=== PATIENT | male | born 1980 | race Caucasian/White ===

== ENCOUNTER 2020-09-20 15:54 | Inpatient (IN) ==
--- NOTE | 2020-09-20 16:47 | DR.GENAD ---
HPI Time Seen Time Seen by Provider: 09/20/20 16:47 PCP Primary Care Physician: JOEL HPI Comment HPI Comment: PATIENT IS 40YR OLD MALE IN ER WITH REDNESS UNDER SCOTUM AND UNDER BASE OF PENIS. ALSO SWELLING AND PAIN BOTH TESTICLES. PATIENT DENIES DM. CUR RENTLY PAIN IS SHARP, 5/10 AND RADIATES DOWN THE SCOTUM. CELLULITIS STARTED 2 WEEKS AGO AND GOT WORSE. HE WAS THEN ADMITTED AT [facility] IN [place] PAST MONDAY AND DISCHARGE HOME PAST . ON BACTRIM DS AND CLINDAMYCIN. SWELLING AND PAIN GETTING WORSE AND IS STARTED RUNNING FEVER. NO DYSURIA, NAUSEA, VOMITING OR DIARRHEA. NO DRAINAGE NOTED. IN THE HOSPITAL HE WAS TREATED WITH IV ANTIBIOTICS WELL. PATIENT HAS FAIL OUT PATIENT TREAMENT. Complaint/Symptoms Chief Complaint Doctors Comments: PAIN AND SWELLING SCOTUM AND TESTIS. Chief Complaint:: PT. STATES HE HAS AN IN GROWN HAIR TO LEFT GROIN FROM SHAVING. PT. STATES IT IS NOT GETTING BETTER. PT. STATES HE WAS HOSPITALIZED IN [place] FOR PROBLEM X 2 DAYS AND WAS RELEASED ON MONDAY. PT. IS CURRENTLY ON CLINDAMYCIN AND BACTRIM. COVID-19 Coronavirus risk:travel/contact w/high risk person: No Has patient experienced Coronavirus symptoms: No Nurses notes reviewed Nurses Notes Review: Yes Source History Provided: Patient Mode of Arrival Mode of Arrival: Ambulatory Timing Onset of Chief Complaint: 09/06/20 Came on: Suddenly Duration Duration: Constant Duration: Weeks Location Location: SCROTUM. Severity Severity: Moderate Modifying Factors Worsens:: WALKING. Improves:: RESTING. Associated Signs and Symptoms Associated Signs and Symptoms: LOWGRADE FEVER. Other History Other History: NO HISTORY OF DM. PMH PMH Past Medical History: No Past Surgical History: Yes Surgical History: Other Past Surgical History Comment: RIGHT FOOT Family History History of Family Medical Conditions: No Social History Does patient currently use any type of tobacco product: Yes Have you used tobacco products in the last 12 months: Yes Type of Tobacco Use: Cigarettes Does any household member use tobacco: No Alcohol Use: Heavy Lives With: Family Lives Where: Home Travel Risk Coronavirus risk:travel/contact w/high risk person: No Has patient experienced Coronavirus symptoms: No Infectious screening In the last 2 months have you had wt loss of >10#?: NO Have you had fever, night sweats or hemotysis?: No Have you traveled outside the country in the last 6 months?: No Isolation: Standard ROS Review of Systems Constitutional: See HPI and Fever; negative Weakness and Fatigue Eyes: No Symptoms Reported and See HPI ENTM: No Symptoms Reported and See HPI; negative Nose Discharge and Nose Congestion Respiratoy: No Symptoms Reported and See HPI; negative Moist Cough, Short of Breath and Wheezing Cardiovascular: No Symptoms Reported, See HPI and Palpitations; negative Chest Pain and Edema Gastrointestinal/Abdominal: No Symptoms Reported and See HPI; negative Abdominal Pain, Diarrhea and Vomiting Genitourinary: No Symptoms Reported and See HPI; negative Dysuria, Frequency and Hematuria Neurological: No Symptoms Reported and See HPI; negative Headache, Weakness and Dizziness Musculoskeletal: No Symptoms Reported and See HPI; negative Back Pain and Muscle Pain Integumentary: See HPI, Change in Color and Other (SCOTUM RED AND SWOLLEN, TE STES SWOLLEN.); negative Rash and Juandice Hematologic/Lymphatic: No Symptoms Reported and See HPI; negative Easy Bruising and Swollen Glands Endocrine: No Symptoms Reported and See HPI; negative Increased Thirst and Increased Urine Psychiatric: No Symptoms Reported and See HPI All Other Systems: Reviewed and Negative PE Vital Signs Vitals: Temperature 99.1 F Pulse Rate 120 Respiratory Rate 20 Blood Pressure 131/83 O2 Sat by Pulse Oximetry 97 General Limitations: No Limitations General Appearance: Alert and In No Apparent Distress Head Head Exam: Normal Inspection Eyes Eye exam: Normal Appearance and PERRL; negative Scleral Icterus and Conjunctival Injection ENT ENT Exam: Normal Exam, Normal Oropharynx, Normal External Ear Exam and TM's Normal Bilaterally External Ear Exam: Normal External Inspection; negative Mastoid Tenderness TM/Canal Exam: Bilateral: Normal Nose Exam: Normal Nose Exam Mouth Exam: Normal Inspection; negative Lip Swelling and Tongue Swelling Throat Exam: Normal Inspection; negative Tonsillar Erythema, Tonsillomegaly and Tonsillar Exudate Neck Neck Exam: Normal Inspection and Trachea Midline; negative Tenderness and Lymphadenopathy Chest Chest Inspection: Normal Inspection Respiratory Respiratory Exam: Normal Lung Sounds Bilat Respiratory Exam: Bilateral: Clear to Auscultation Cardiovascular Cardiovascular Exam: Regular Rate, Normal Rhythm and Normal Heart Sounds; negative Systolic Murmur and Diastolic Murmur Abdominal Exam Abdominal Exam: Normal Inspection, Normal Bowel Sounds and Soft; negative Tenderness Extremities Extremities Exam: Normal Inspection and Normal Capillary Refill; negative Calf T enderness Back Back Exam: Normal Inspection; negative Tenderness, (R) CVA Tenderness, (L) CVA Tenderness and Paraspinal Tenderness Neurologic Neurological Exam: Alert, Oriented X3 and CN II-XII Intact; negative Motor Sensory Deficit Psychiatric Psychiatric Exam: Normal Affect and Normal Mood Skin Skin Exam: Dry and Other (ABSCESS AND CELLULITIS SCOTUM, PAIN SCROTUM AND TESTIS.) MDM Differential Diagnosis Differential Diagnosis: CELLULITIS AND ABSCESS SCROTUM. PAIN SCROTUM AND TESTIS. COURSE Treatment Treatment: SEE ORDERS. NS 1L IV AND VANCOMUCIN 1GM IVPB IN ER. Consultation Consultation Comments: SURGICAL CONSULT, DR. THURSTON. HE IS IN ER EVALUATING PATIENT. HE WILL ADMIT PATIENT. Education/Counseling Education/Counseling: Patient Educated On: Diagnosis ROR Labs Reviewed Laboratory Results Reviewed?: Yes Result Diagrams: 09/20/20 17:27 09/20/20 17:27 Laboratory: WBC 12.1 X10^3/uL (3.6-10.0) H 09/20/20 17:27 RBC 4.58 X10^6/uL (4.7-6.0) L 09/20/20 17:27 Hgb 14.6 g/dL (13.5-18.0) 09/20/20 17:27 Hct 43.3 % (42.0-54.0) 09/20/20 17:27 MCV 94.5 fL (80.0-100.0) 09/20/20 17:27 MCH 32.0 pg (27.0-34.0) 09/20/20 17:27 MCHC 33.8 g/dL (33.0-35.0) 09/20/20 17:27 RDW 13.0 % (11.6-16.5) 09/20/20 17:27 Plt Count 331 X10^3/uL (150.0-450.0) 09/20/20 17:27 MPV 7.7 fL (7.4-11.0) 09/20/20 17:27 Neut % (Auto) 72.8 % (42.0-75.0) 09/20/20 17:27 Lymph % (Auto) 15.4 % (21.0-51.0) L 09/20/20 17:27 [place] % (Auto) 9.8 % (0.0-13.0) 09/20/20 17:27 Eos % (Auto) 1.5 % (0.9-2.9) 09/20/20 17:27 Baso % (Auto) 0.5 % (0.2-1.0) 09/20/20 17:27 Neut # (Auto) 8.8 x10^3/uL (2.2-4.8) H 09/20/20 17:27 Lymph # (Auto) 1.9 X10^3/uL (1.3-2.9) 09/20/20 17:27 [place] # (Auto) 1.2 x10^3/uL (0.3-0.8) H 09/20/20 17:27 Eos # (Auto) 0.2 x10^3/uL (0.0-0.2) 09/20/20 17:27 Baso # (Auto) 0.1 X10^3/uL (0.0-0.1) 09/20/20 17:27 Absolute Nucleated RBC 0.0 /100WBC 09/20/20 17:27 Sodium 141 mmol/L (136-145) 09/20/20 17:27 Corrected Sodium TNP 09/20/20 17:27 Potassium 4.0 mmol/L (3.5-5.1) 09/20/20 17:27 Chloride 102 mmol/L (98-107) 09/20/20 17:27 Carbon Dioxide 28.4 mmol/L (21-32) 09/20/20 17:27 BUN 19 mg/dL (7-18) H 09/20/20 17:27 Creatinine 1.01 mg/dL (0.70-1.30) 09/20/20 17:27 Est GFR (MDRD) Af Amer > 60 (>60) 09/20/20 17:27 Est GFR (MDRD) Non-Af > 60 (>60) 09/20/20 17:27 Glucose 78 mg/dL (65-99) 09/20/20 17:27 Calcium 8.6 mg/dL (8.5-10.1) 09/20/20 17:27 Corrected Calcium TNP 09/20/20 17:27 Total Bilirubin 0.20 mg/dL (0.2-1.0) 09/20/20 17:27 AST 27 Units/L (15-37) 09/20/20 17:27 ALT 30 Units/L (12-78) 09/20/20 17:27 Alkaline Phosphatase 85 Units/L (46-116) 09/20/20 17:27 Total Protein 7.4 g/dL (6.4-8.2) 09/20/20 17:27 Albumin 3.5 g/dL (3.4-5.0) 09/20/20 17:27 Globulin 3.9 g/dL (2.5-4.5) 09/20/20 17:27 Albumin/Globulin Ratio 0.9 Ratio (1.1-2.1) L 09/20/20 17:27 SARS CoV-2 RNA Rapid ИРИНА Negative (NEGATIVE) 09/20/20 20:49 XRAY XRAY Interpreted by: Radiologist (TESTICULAR US REPORT NOTED AND DISCUSSED WITH PATIENT.) and Self Opioid Opioid Risk Tool Age (Carlos box if 16-45): Yes History of Preadolescent Sexual Abuse: No Total: 1 Total Score Risk Category: Low Risk Copyright: Colton DORADO predicting aberrant behaviors Diagnosis Discharge Problem: Abscess of scrotum, Pain in both testicles
[2020-09-20 17:34] LABS: BASOPHILS # (AUTO) 0.1 X10^3/uL (0.0-0.1); BASOPHILS % (AUTO) 0.5 % (0.2-1.0); EOSINOPHILS # (AUTO) 0.2 x10^3/uL (0.0-0.2); EOSINOPHILS % (AUTO) 1.5 % (0.9-2.9); HEMATOCRIT 43.3 % (42.0-54.0); HEMOGLOBIN 14.6 g/dL (13.5-18.0); LYMPHOCYTES # (AUTO) 1.9 X10^3/uL (1.3-2.9); LYMPHOCYTES % (AUTO) 15.4 % (21.0-51.0); MEAN CORPUSCULAR HGB CONC 33.8 g/dL (33.0-35.0); MEAN CORPUSCULAR VOLUME 94.5 fL (80.0-100.0); MEAN PLATELET VOLUME 7.7 fL (7.4-11.0); MONOCYTES # (AUTO) 1.2 x10^3/uL (0.3-0.8); MONOCYTES % (AUTO) 9.8 % (0.0-13.0); NEUTROPHILS # (AUTO) 8.8 x10^3/uL (2.2-4.8); NEUTROPHILS % (AUTO) 72.8 % (42.0-75.0); PLATELET COUNT 331 X10^3/uL (150.0-450.0); RED BLOOD COUNT 4.58 X10^6/uL (4.7-6.0); WHITE BLOOD COUNT 12.1 X10^3/uL (3.6-10.0)
[2020-09-20 17:44] LABS: ALANINE AMINOTRANSFERASE 30 Units/L (12-78); ALBUMIN 3.5 g/dL (3.4-5.0); ALKALINE PHOSPHATASE 85 Units/L (46-116); ASPARTATE AMINO TRANSFERASE 27 Units/L (15-37); BLOOD UREA NITROGEN 19 mg/dL (7-18); CALCIUM 8.6 mg/dL (8.5-10.1); CARBON DIOXIDE 28.4 mmol/L (21-32); CHLORIDE 102 mmol/L (98-107); CREATININE 1.01 mg/dL (0.70-1.30); SODIUM 141 mmol/L (136-145); TOTAL PROTEIN 7.4 g/dL (6.4-8.2); eGFR NON BLACK RACES > 60 (>60)
--- NOTE | 2020-09-20 19:25 | US ---
EXAM: TESTICULAR ULTRASOUNDHISTORY: Testicular pain.TECHNIQUE: Kamara scale imaging, duplex Doppler and color flow Doppler imaging are performed with a high frequency linear transducer.COMPARISON: None available.FINDINGS:Both testicles are normal in size and echogenicity. The right testicle measures approximately 3.8 cm x 2 cm x 3 cm, and the left testicle measures approximately 4 cm x 2.7 cm x 3 cm. Normal symmetrical color flow Doppler signal is seen within the testicles. There is no evidence for testicular torsion or orchitis. There is no testicular mass seen.There is no evidence for epididymitis. The right epididymal head measures approximately 11.4 mm, and the left epididymal head measures approximately 1.0 mm, which are within normal limits. No epididymal cyst or spermatocele is seen.There is no evidence for gross hydrocele, varicocele, or herniated bowel loops seen bilaterally. There is an approximately 3.5 cm CC by 1.5 cm AP area of heterogeneous subcutaneous parenchymal hypoechogenicity with hyperemic colorful Doppler signal within the surrounding soft tissues; DDx includes infectious process with phlegmon or developing abscess in the appropriate clinical setting. Clinical correlation is advised.IMPRESSION:1. No evidence for testicular mass, testicular torsion, or orchitis.2. No evidence for epididymitis.3. No hydrocele, varicocele, or herniated bowel loops seen.4. Approximately 3.5 cm CC by 1.5 cm AP area of heterogeneous subcutaneous parenchymal hypoechogenicity with hyperemic colorful Doppler signal within the surrounding soft tissues; DDx includes infectious process with phlegmon or developing abscess in the appropriate clinical setting. Clinical correlation is advised.Electronically signed by: Dominique Fajardo (Sep 20, 2020 19:23:28)
[2020-09-20] MEDS ORDERED: VANCOMYCIN IV *PREMIX 1 G/200 ML BAG 1 G/200 ML PIGGYBACK IV ONE ×2 (20:19→20:23)
[2020-09-20] MEDS ORDERED: NS 1000 ML 1,000 ML ONE (20:19)
[2020-09-20] MEDS: NS 1000 ML 1,000 ML IV SCH (20:25)
[2020-09-20] MEDS ORDERED: ZOFRAN TAB 4 MG PO PRN (21:46)
[2020-09-20] MEDS ORDERED: VANCOMYCIN IV *PREMIX 1 G/200 ML BAG 1 G/200 ML PIGGYBACK IV SCH (21:46)
--- NOTE | 2020-09-20 22:49 | DR.H&P ---
H&P History & Physical for Day of: H&P Date: 09/20/20 Chief Complaint Chief Complaint: Swelling of left scrotum with evidence cellulitis . Allergies Allergies Allergy/AdvReac Type Severity Reaction Status Date / Time aspirin Allergy Verified 09/20/20 16:05 Penicillins Allergy Verified 09/20/20 16:05 History of Present Illness History of Present Illness: 40 yo male with progressive swelling of left scrotum with fluctuance . Getting worse . 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.) Social History Does patient currently use any type of tobacco product: Yes Have you used tobacco products in the last 12 months: Yes Type of Tobacco Use: Cigarettes Does any household member use tobacco: No Alcohol Use: Heavy Medications Home Medications: aspirin Allergy (Verified 09/20/20 16:05) Penicillins Allergy (Verified 09/20/20 16:05) CONTINUE taking the following medications clindamycin HCl 300 mg PO Q8H 09/20/20 [History] mupirocin 1 applic TOPICAL BID 09/20/20 [History] sulfamethoxazole-trimethoprim 1 tab PO BID 09/20/20 [History] Labs Result Diagrams: 09/20/20 17:27 09/20/20 17:27 Labs: Laboratory WBC 12.1 X10^3/uL (3.6-10.0) H 09/20/20 17:27 RBC 4.58 X10^6/uL (4.7-6.0) L 09/20/20 17:27 Hgb 14.6 g/dL (13.5-18.0) 09/20/20 17:27 Hct 43.3 % (42.0-54.0) 09/20/20 17:27 MCV 94.5 fL (80.0-100.0) 09/20/20 17:27 MCH 32.0 pg (27.0-34.0) 09/20/20 17:27 MCHC 33.8 g/dL (33.0-35.0) 09/20/20 17:27 RDW 13.0 % (11.6-16.5) 09/20/20 17:27 Plt Count 331 X10^3/uL (150.0-450.0) 09/20/20 17:27 MPV 7.7 fL (7.4-11.0) 09/20/20 17:27 Neut % (Auto) 72.8 % (42.0-75.0) 09/20/20 17:27 Lymph % (Auto) 15.4 % (21.0-51.0) L 09/20/20 17:27 [place] % (Auto) 9.8 % (0.0-13.0) 09/20/20 17:27 Eos % (Auto) 1.5 % (0.9-2.9) 09/20/20 17:27 Baso % (Auto) 0.5 % (0.2-1.0) 09/20/20 17:27 Neut # (Auto) 8.8 x10^3/uL (2.2-4.8) H 09/20/20 17:27 Lymph # (Auto) 1.9 X10^3/uL (1.3-2.9) 09/20/20 17:27 [place] # (Auto) 1.2 x10^3/uL (0.3-0.8) H 09/20/20 17:27 Eos # (Auto) 0.2 x10^3/uL (0.0-0.2) 09/20/20 17:27 Baso # (Auto) 0.1 X10^3/uL (0.0-0.1) 09/20/20 17:27 Absolute Nucleated RBC 0.0 /100WBC 09/20/20 17:27 Sodium 141 mmol/L (136-145) 09/20/20 17:27 Corrected Sodium TNP 09/20/20 17:27 Potassium 4.0 mmol/L (3.5-5.1) 09/20/20 17:27 Chloride 102 mmol/L (98-107) 09/20/20 17:27 Carbon Dioxide 28.4 mmol/L (21-32) 09/20/20 17:27 BUN 19 mg/dL (7-18) H 09/20/20 17:27 Creatinine 1.01 mg/dL (0.70-1.30) 09/20/20 17:27 Est GFR (MDRD) Af Amer > 60 (>60) 09/20/20 17:27 Est GFR (MDRD) Non-Af > 60 (>60) 09/20/20 17:27 Glucose 78 mg/dL (65-99) 09/20/20 17:27 Calcium 8.6 mg/dL (8.5-10.1) 09/20/20 17:27 Corrected Calcium TNP 09/20/20 17:27 Total Bilirubin 0.20 mg/dL (0.2-1.0) 09/20/20 17:27 AST 27 Units/L (15-37) 09/20/20 17:27 ALT 30 Units/L (12-78) 09/20/20 17:27 Alkaline Phosphatase 85 Units/L (46-116) 09/20/20 17:27 Total Protein 7.4 g/dL (6.4-8.2) 09/20/20 17:27 Albumin 3.5 g/dL (3.4-5.0) 09/20/20 17:27 Globulin 3.9 g/dL (2.5-4.5) 09/20/20 17:27 Albumin/Globulin Ratio 0.9 Ratio (1.1-2.1) L 09/20/20 17:27 SARS CoV-2 RNA Rapid ИРИНА Negative (NEGATIVE) 09/20/20 20:49 Review of Systems Genitourinary: Other (fluctuant mass left scrotum with surrounding cellulitis.) Physical Exam Vital Signs: Temperature 98.3 F Pulse Rate [Brachial] 108 Pulse Rate 120 Respiratory Rate 18 Blood Pressure [Left Arm] 145/99 Blood Pressure 131/83 O2 Sat by Pulse Oximetry 96 Oriented: Normal, Time, Person and Place Eyes: Normal Ear: Normal Nose: Normal Throat: Normal Respiratory: Clear Throughout Cardiovascular: Normal : Testicular Pain ( fluctuant mass left scrotum with surrounding cellulitis ) Auscultation: Bowel Sounds: Normal Palpation: Normal Skin: Normal Musculoskeletal: Normal Psychiatric: Normal Mood Description: Calm Assessment/Plan (1) Abscess of scrotum: Status: Acute Plan: IV antibiotics and plan for incision and drainage of abscess left scrotum tomorrow. Risks and benefits discussed with the patient. Review Patient was examined?: Yes
[2020-09-20] MEDS: PERCOCET TAB 5/325 MG PO PRN (23:10)
[2020-09-20 23:28] LABS: BILIRUBIN,URINE NEGATIVE (NEGATIVE); BLOOD/HEMOGLOBIN,URINE 1+ (NEGATIVE); GLUCOSE, URINE NEGATIVE (NEGATIVE); KETONES,URINE NEGATIVE (NEGATIVE); LEUKOCYTE ESTERASE ,URINE NEGATIVE (NEGATIVE); NITRITES,URINE NEGATIVE (NEGATIVE); PROTEIN,URINE NEGATIVE (NEGATIVE); UROBILINOGEN,URINE NORMAL (NORMAL)
[2020-09-20 23:32] VITALS: BMI 19.5
[2020-09-20 23:37] LABS: APPEARANCE,URINE CLEAR (CLEAR); BACTERIA,URINE NEGATIVE /HPF (NEGATIVE); COLOR,URINE YELLOW (YELLOW); RBC,URINE NONE SEEN /HPF (0-3); SQUAMOUS EPITHELIAL CELL,UR RARE /HPF (NEGATIVE)
[2020-09-21] MEDS: NS 1000 ML 1,000 ML IV SCH ×3 (05:09→21:40)
[2020-09-21 05:15] LABS: BASOPHILS # (AUTO) 0.1 X10^3/uL (0.0-0.1); BASOPHILS % (AUTO) 0.7 % (0.2-1.0); EOSINOPHILS # (AUTO) 0.3 x10^3/uL (0.0-0.2); EOSINOPHILS % (AUTO) 2.5 % (0.9-2.9); HEMATOCRIT 40.3 % (42.0-54.0); HEMOGLOBIN 13.7 g/dL (13.5-18.0); LYMPHOCYTES # (AUTO) 1.7 X10^3/uL (1.3-2.9); LYMPHOCYTES % (AUTO) 17.1 % (21.0-51.0); MEAN CORPUSCULAR VOLUME 94.2 fL (80.0-100.0); MEAN PLATELET VOLUME 8.5 fL (7.4-11.0); MONOCYTES # (AUTO) 1.3 x10^3/uL (0.3-0.8); MONOCYTES % (AUTO) 12.8 % (0.0-13.0); NEUTROPHILS # (AUTO) 6.8 x10^3/uL (2.2-4.8); NEUTROPHILS % (AUTO) 66.9 % (42.0-75.0); PLATELET COUNT 303 X10^3/uL (150.0-450.0); RED BLOOD COUNT 4.28 X10^6/uL (4.7-6.0); RED CELL DISTRIBUTION WIDTH 12.9 % (11.6-16.5); WHITE BLOOD COUNT 10.1 X10^3/uL (3.6-10.0)
[2020-09-21 05:24] LABS: ALANINE AMINOTRANSFERASE 25 Units/L (12-78); ALBUMIN 2.9 g/dL (3.4-5.0); ALKALINE PHOSPHATASE 78 Units/L (46-116); ASPARTATE AMINO TRANSFERASE 22 Units/L (15-37); BLOOD UREA NITROGEN 14 mg/dL (7-18); CALCIUM 8.2 mg/dL (8.5-10.1); CARBON DIOXIDE 30.1 mmol/L (21-32); CHLORIDE 106 mmol/L (98-107); COR CA(FOR HYPOALB) 9.1 mg/dL (8.5-10.1); CREATININE 0.89 mg/dL (0.70-1.30); SODIUM 141 mmol/L (136-145); TOTAL PROTEIN 6.4 g/dL (6.4-8.2); eGFR NON BLACK RACES > 60 (>60)
[2020-09-21] MEDS: VANCOMYCIN HCL 750 MG in D5W 250 ML IV 250 ML IV SCH ×2 (08:45→20:45)
--- NOTE | 2020-09-21 11:01 | RAD ---
HISTORYPRE-OP SCROTUMSTUDYCHEST, 1 VIEWCOMPARISONNoneFINDINGSThe trachea is midline. The cardiac silhouette is unremarkable . The lungs are clear without focal infiltrate or effusion. The bony thorax is unremarkable.IMPRESSIONNo acute cardiopulmonary disease.Electronically signed by: IAN KHAN (Sep 21, 2020 10:58:39)
[2020-09-21] MEDS ORDERED: LR 1000 ML IV 1,000 ML IV ONE (12:51)
[2020-09-21] MEDS ORDERED: CLEOCIN 600 MG IV PREMIX 0 MG/0 ML BAG IV ONE (12:51)
[2020-09-21] MEDS ORDERED: BETADINE SOLN ONE (12:52)
[2020-09-21] MEDS ORDERED: FENTANYL INJ 100 mcg ONE (13:18)
[2020-09-21] MEDS ORDERED: KETALAR ONE (13:36)
[2020-09-21] MEDS ORDERED: XYLOCAINE 2 % (PLAIN) ONE (13:36)
[2020-09-21] MEDS ORDERED: VERSED ONE (13:36)
[2020-09-21] MEDS ORDERED: DIPRIVAN VIAL ONE (13:36)
[2020-09-21] MEDS ORDERED: MARCAINE 0.5% ONE (13:41)
[2020-09-21] MEDS: PERCOCET TAB 5/325 MG PO PRN ×3 (15:32→21:26)
--- NOTE | 2020-09-21 15:48 | OR.IMMED ---
IMMEDIATE POST-OP NOTE Immediate Post-Op Note Pre-Op Diagnosis: left scrotal abscess Post-Op Diagnosis: same Procedure: incise and drain left srotal abscess Description of Procedure: see operative report Surgeon/Senior Stock Plan Administrator: Denise Findings: As above Specimens Removed: cultures of abscess Estimated Blood Loss: minimal Drains: NONE Complications: none Progress Notes: Dressing with scrotal support applied. Continue IV Vancomycin and await culture results Discharge Progress Notes: as above Condition: Stable Post Hospital Plans and Medications: as above Final Diagnosis: left scrotal abscess.
[2020-09-22 05:18] LABS: BASOPHILS # (AUTO) 0.1 X10^3/uL (0.0-0.1); BASOPHILS % (AUTO) 0.5 % (0.2-1.0); EOSINOPHILS # (AUTO) 0.3 x10^3/uL (0.0-0.2); EOSINOPHILS % (AUTO) 2.8 % (0.9-2.9); HEMATOCRIT 39.7 % (42.0-54.0); HEMOGLOBIN 13.3 g/dL (13.5-18.0); LYMPHOCYTES # (AUTO) 1.5 X10^3/uL (1.3-2.9); LYMPHOCYTES % (AUTO) 14.4 % (21.0-51.0); MEAN CORPUSCULAR HEMOGLOBIN 32.1 pg (27.0-34.0); MEAN CORPUSCULAR HGB CONC 33.4 g/dL (33.0-35.0); MEAN PLATELET VOLUME 8.5 fL (7.4-11.0); MONOCYTES # (AUTO) 1.2 x10^3/uL (0.3-0.8); MONOCYTES % (AUTO) 11.7 % (0.0-13.0); NEUTROPHILS # (AUTO) 7.2 x10^3/uL (2.2-4.8); NEUTROPHILS % (AUTO) 70.6 % (42.0-75.0); PLATELET COUNT 288 X10^3/uL (150.0-450.0); RED BLOOD COUNT 4.14 X10^6/uL (4.7-6.0); RED CELL DISTRIBUTION WIDTH 12.8 % (11.6-16.5); WHITE BLOOD COUNT 10.2 X10^3/uL (3.6-10.0)
[2020-09-22] MEDS: NS 1000 ML 1,000 ML IV SCH ×3 (05:56→23:09)
[2020-09-22 06:39] LABS: BLOOD UREA NITROGEN 13 mg/dL (7-18); CARBON DIOXIDE 29.6 mmol/L (21-32); CHLORIDE 106 mmol/L (98-107); SODIUM 142 mmol/L (136-145); eGFR NON BLACK RACES > 60 (>60)
[2020-09-22] MEDS: PERCOCET TAB 5/325 MG PO PRN ×2 (07:16→19:58)
[2020-09-22] MEDS ORDERED: PHARMACY COMMENT IV NR (08:30)
[2020-09-22 09:22] LABS: CREATININE 0.81 mg/dL (0.70-1.30); VANCOMYCIN,TROUGH 4.4 ug/mL (15-20)
[2020-09-22] MEDS: VANCOMYCIN IV *PREMIX 1 G/200 ML BAG 1 G/200 ML PIGGYBACK IV SCH ×2 (10:00→20:00)
--- NOTE | 2020-09-22 11:12 | NOTE.SOAP ---
Soap Note Note for Day of Date of Exam: 09/22/20 Subjective Data Subjective Data: Postoperative day, number one, after incision and drainage of left scrotal abscess. Doing well. Afebrile Objective Data Temperature: 97.8 F Pulse Rate: 80 Respiratory Rate: 18 Blood Pressure: 109/76 O2 Sat by Pulse Oximetry: 100 Objective Data: Packing removed from left labs this. Redness resolving. No obvious purulence noted. Details of one culture not back yet but growing coagulase positive Staphylococcus. Most likely this will be Staphylococcus aureus. Assessment Assessment: Postoperative day one after incision and drainage of left school abscess. Doing well Plan Plan: Will continue the vancomycin. Wound to be packed daily and the patient to be instructed how to pack the wound. Hope we can transition to p.o. antibiotics tomorrow and discharge home.
--- NOTE | 2020-09-22 11:58 | DR.OPNOTE ---
OP NOTE Pre-Op Diagnosis: Left scrotal abscess Post-Op Diagnosis: same Procedure: The patient was taken to the operating suite and placed in the supine position and given IV sedation. The left scrotum was prepped and draped in sterile fashion. Timeout for the procedure obtained. The abscess of the left scrotum measured approximately 4 cm in diameter and the skin overlying it was infiltrated with 4 cc of 0.5% Marcaine. Transverse incision was used to open the abscess ampulla an it was drained . Cultures obtained. Wound irrigated and then packed with 1/2 inch New Gauze packing. Dressing applied as well as scrotal support. Type of Anesthesia: Local (MAC and local) Findings: left scrotal abscess Specimen/Pathology: cultures of abscess Type of Fluids Used:: Lactated Ringers Urine output: not record EBL: minimal Cultures: see above Complications:: none Needle/Sponge Count:: correct Disposition/Condition: Pt. tolerated procedure without difficulty. Taken to PACU in stable condition.
[2020-09-23] MEDS: NS 1000 ML 1,000 ML IV SCH ×2 (03:06→05:00)
[2020-09-23] MEDS: VANCOMYCIN IV *PREMIX 1 G/200 ML BAG 1 G/200 ML PIGGYBACK IV SCH (09:33)
[2020-09-23 12:16] VITALS: BP 118/85
[2020-09-23] MEDS ORDERED: PHARMACY COMMENT IV NR (20:30)
--- NOTE | 2020-09-28 20:22 | PCM.DCPLAN ---
DISCHARGE SUMMARY Admission Date Date of Admission: 09/20/20 Discharge Date Discharge Date: 09/23/20 Admission Diagnoses (1) Abscess of scrotum: Status: Acute Discharge Medications Discharge Medications: Home Medication List clindamycin HCl 300 mg PO Q8H 09/20/20 [History] mupirocin 1 applic TOPICAL BID 09/20/20 [History] sulfamethoxazole-trimethoprim 1 tab PO BID 09/20/20 [History] clindamycin HCl [Cleocin HCl] 150 mg PO TID #21 cap 09/23/20 [Rx] oxycodone-acetaminophen [Percocet] 1 tab PO Q6H PRN #20 tab MDD 4 09/23/20 [Rx] Prescriptions: clindamycin HCl [Cleocin HCl] Tanvir Walker oxycodone-acetaminophen [Percocet] Tanvir Walker Hospital Course Vital Signs: Temperature 98.6 F Pulse Rate [Brachial] 68 Pulse Rate 80 Respiratory Rate 18 Blood Pressure [Right Arm] 118/85 Blood Pressure [Left Arm] 127/96 Blood Pressure 109/76 O2 Sat by Pulse Oximetry 100 Latest Lab Results: Laboratory Last Values WBC 10.2 X10^3/uL (3.6-10.0) H 09/22/20 04:17 RBC 4.14 X10^6/uL (4.7-6.0) L 09/22/20 04:17 Hgb 13.3 g/dL (13.5-18.0) L 09/22/20 04:17 Hct 39.7 % (42.0-54.0) L 09/22/20 04:17 MCV 96.0 fL (80.0-100.0) 09/22/20 04:17 MCH 32.1 pg (27.0-34.0) 09/22/20 04:17 MCHC 33.4 g/dL (33.0-35.0) 09/22/20 04:17 RDW 12.8 % (11.6-16.5) 09/22/20 04:17 Plt Count 288 X10^3/uL (150.0-450.0) 09/22/20 04:17 MPV 8.5 fL (7.4-11.0) 09/22/20 04:17 Neut % (Auto) 70.6 % (42.0-75.0) 09/22/20 04:17 Lymph % (Auto) 14.4 % (21.0-51.0) L 09/22/20 04:17 [place] % (Auto) 11.7 % (0.0-13.0) 09/22/20 04:17 Eos % (Auto) 2.8 % (0.9-2.9) 09/22/20 04:17 Baso % (Auto) 0.5 % (0.2-1.0) 09/22/20 04:17 Neut # (Auto) 7.2 x10^3/uL (2.2-4.8) H 09/22/20 04:17 Lymph # (Auto) 1.5 X10^3/uL (1.3-2.9) 09/22/20 04:17 [place] # (Auto) 1.2 x10^3/uL (0.3-0.8) H 09/22/20 04:17 Eos # (Auto) 0.3 x10^3/uL (0.0-0.2) H 09/22/20 04:17 Baso # (Auto) 0.1 X10^3/uL (0.0-0.1) 09/22/20 04:17 Absolute Nucleated RBC 0.0 /100WBC 09/22/20 04:17 Sodium 142 mmol/L (136-145) 09/22/20 04:17 Corrected Sodium TNP 09/22/20 04:17 Potassium 4.6 mmol/L (3.5-5.1) 09/22/20 04:17 Chloride 106 mmol/L (98-107) 09/22/20 04:17 Carbon Dioxide 29.6 mmol/L (21-32) 09/22/20 04:17 BUN 13 mg/dL (7-18) 09/22/20 04:17 Creatinine 0.81 mg/dL (0.70-1.30) 09/22/20 08:40 Est GFR (MDRD) Af Amer > 60 (>60) 09/22/20 04:17 Est GFR (MDRD) Non-Af > 60 (>60) 09/22/20 04:17 Glucose 108 mg/dL (65-99) H 09/22/20 04:17 Calcium 8.0 mg/dL (8.5-10.1) L 09/22/20 04:17 Corrected Calcium 9.1 mg/dL (8.5-10.1) 09/21/20 03:53 Total Bilirubin 0.30 mg/dL (0.2-1.0) 09/21/20 03:53 AST 22 Units/L (15-37) 09/21/20 03:53 ALT 25 Units/L (12-78) 09/21/20 03:53 Alkaline Phosphatase 78 Units/L (46-116) 09/21/20 03:53 Total Protein 6.4 g/dL (6.4-8.2) 09/21/20 03:53 Albumin 2.9 g/dL (3.4-5.0) L 09/21/20 03:53 Globulin 3.5 g/dL (2.5-4.5) 09/21/20 03:53 Albumin/Globulin Ratio 0.8 Ratio (1.1-2.1) L 09/21/20 03:53 Specimen Type Clean catch urine 09/20/20 22:50 Urine Color Yellow (YELLOW) 09/20/20 22:50 Urine Appearance Clear (CLEAR) 09/20/20 22:50 Urine pH 5.0 (5.0 - 8.0) 09/20/20 22:50 Ur Specific [place] 1.020 (1.000-1.030) 09/20/20 22:50 Urine Protein Negative (NEGATIVE) 09/20/20 22:50 Urine Glucose (UA) Negative (NEGATIVE) 09/20/20 22:50 Urine Ketones Negative (NEGATIVE) 09/20/20 22:50 Urine Occult Blood 1+ (NEGATIVE) 09/20/20 22:50 Urine Nitrite Negative (NEGATIVE) 09/20/20 22:50 Urine Bilirubin Negative (NEGATIVE) 09/20/20 22:50 Urine Urobilinogen Normal (NORMAL) 09/20/20 22:50 Ur Leukocyte Esterase Negative (NEGATIVE) 09/20/20 22:50 Urine RBC None seen /HPF (0-3) 09/20/20 22:50 Urine WBC None seen /HPF (0-5) 09/20/20 22:50 Ur Squamous Epith Cells Rare /HPF (NEGATIVE) 09/20/20 22:50 Urine Bacteria Negative /HPF (NEGATIVE) 09/20/20 22:50 Ur Culture Indicated? No/not indicated 09/20/20 22:50 Vancomycin Trough 4.4 ug/mL (15-20) L 09/22/20 08:40 SARS CoV-2 RNA Rapid ИРИНА Negative (NEGATIVE) 09/20/20 20:49 Hospital Course: 40-year-old male who presented with a left scrotal abscess. He underwent incision and drainage of this. He has been treated with IV vancomycin. Cultures show coagulase positive Staphylococcus aureus. Wound has been packed daily. He we discharged today on his usual medications plus clindamycin 150 mg PO TID time 7 days. He also will be given a prescription for Percocet 5 mg tablets, one PO to 6 hours prn pain. He will pack the wound daily and see me in the office in one week. Instructions Instructions: Skin Abscess Incision and Drainage, Care After Hand Washing, [id number] How to Change Your Dressing, [id number] Wound Packing Antibiotic Medicine, Adult, [id number] Scrotal Swelling You've Been Prescribed an Antibiotic in the Hospital for an Infection - FORMER[facility] NAMED [facility] (07/2017) Forms: Excuse From Work or School Precautions for COVID19 Patient Portal Social Distancing
== END 2020-09-23 12:35 | disposition home or self-care (01) | DRG 728 ==
LOC: ER 16:01 → MED/SURG 21:23
PROVIDERS: ADMIT Surgery; ATTEND Surgery
DX: N49.2 Inflammatory disorders of scrotum; N50.812 Left testicular pain; N50.811 Right testicular pain; B95.62 Methicillin resistant Staphylococcus aureus infection as the cause of diseases classified elsewhere; Z20.822 Contact with and (suspected) exposure to COVID-19